=== PATIENT | female | born 1980 | race African-American/Black ===

== ENCOUNTER 2016-09-28 11:46 | Emergency (ER) | payer SELFPAY ==
[2016-09-28 12:04] VITALS: BP 118/74; PULSE 99; TEMP 99.5; BMI 32.6
[2016-09-28 13:27] LABS: URINE APPEARANCE CLEAR; URINE BILIRUBIN NEGATIVE (NEGATIVE); URINE BLOOD NEGATIVE (NEGATIVE); URINE COLOR YELLOW; URINE GLUCOSE (UA) NEGATIVE (NEGATIVE); URINE KETONE TRACE (NEGATIVE); URINE LEUK ESTERASE TRACE (NEGATIVE); URINE NITRITE NEGATIVE (NEGATIVE)
[2016-09-28 13:37] LABS: URINE PROTEIN 1+ (NEGATIVE)
[2016-09-28 13:39] LABS: URINE BACTERIA RARE /hpf (NONE SEEN); URINE HYALINE CAST 1 /lpf; URINE MUCUS FEW; URINE RBC 3 /hpf (0-3); URINE WBC 4 /hpf (3-5)
--- NOTE | 2016-09-28 14:06 | PDOC ---
History of Present Illness - General Chief Complaint: Cold Symptoms Stated Complaint: FEVER/BACK PAIN Time Seen by Provider: 09/28/16 12:35 History Source: Patient Exam Limitations: No Limitations - History of Present Illness Initial Comments: 09/28/16 14:02 Patient is a 36-year-old female, no significant medical history currently on no medications presents emergency department for evaluation of intermittent subjective fevers for 2 weeks. Patient has been taking 800 mg of Motrin. Has been feeling generalized body pain, joint pain, no sore throat, denies any dysuria, no nausea vomiting or diarrhea, no cough. Patient denies any rash. Patient took Motrin this a.m. MAXIMUM TEMPERATURE is unknown. Past Medical History: Denies. Allergies: No known allergies Family History: Non-contributory Social History: Denies smoking, alcohol use, or IVDU Vital signs on arrival are notable for pulse of 96. Review of Systems GENERAL/CONSTITUTIONAL: Fever. No weakness. No weight change. HEAD, EYES, EARS, NOSE AND THROAT: No change in vision. No ear pain or discharge. No sore throat. CARDIOVASCULAR: No chest pain or shortness of breath. RESPIRATORY: No cough, wheezing, or hemoptysis. GASTROINTESTINAL: No nausea, vomiting, diarrhea or constipation. No rectal bleeding. GENITOURINARY: No dysuria, frequency, or change in urination. MUSCULOSKELETAL: No joint or muscle swelling or pain. No neck or back pain. SKIN AND BREASTS: No rash or easy bruising. NEUROLOGIC: No headache, vertigo, loss of consciousness, or loss of sensation. PSYCHIATRIC: No depression or anxiety. ENDOCRINE: No increased thirst. No abnormal weight change. HEMATOLOGIC/LYMPHATIC: No anemia, easy bleeding, or history of blood clots. ALLERGIC/IMMUNOLOGIC: No hives or skin allergy. No latex allergy. Physical Exam: GENERAL: The patient is awake, alert, and fully oriented, in no acute distress. HEAD: Normal with no signs of trauma. EYES: Pupils equal, round and reactive to light, extraocular movements intact, sclera anicteric, conjunctiva clear. ENT: Ears normal, nares patent, oropharynx clear without exudates. Moist mucous membranes. No uvula deviation NECK: Normal range of motion, supple without lymphadenopathy, JVD, or masses. LUNGS: Breath sounds equal, clear to auscultation bilaterally. No wheezes, and no crackles. HEART: Regular rate and rhythm, normal S1 and S2 without murmur, rub or gallop. ABDOMEN: Soft, nontender, normoactive bowel sounds. No guarding, no rebound. No masses. No bruising or abrasions RECTAL : Guaiac negative, normal rectal tone. MUSCULOSKELETAL: Normal range of motion, no edema. No clubbing or cyanosis. No cords, erythema, or tenderness. No CVA Tenderness with fist. NEUROLOGICAL: Cranial nerves II through XII grossly intact. Normal speech, normal gait. PSYCH: Normal mood, normal affect. SKIN: Warm, Dry, normal turgor, no rashes or lesions noted. 09/28/16 14:08 09/28/16 14:15 Past History - Past Medical History Allergies/Adverse Reactions: Allergies Allergy/AdvReac Type Severity Reaction Status Date / Time No Known Allergies Allergy Verified 09/28/16 12:00 Home Medications: Ambulatory Orders NK [No Known Home Medication] 09/28/16 Other medical history: DENIES. - Psycho/Social/Smoking Cessation Hx Suicidal Ideation: No Smoking History: Never smoked *Physical Exam - Vital Signs Last Vital Signs Temp Pulse Resp BP Pulse Ox 99.5 F 99 H 19 118/74 96 09/28/16 12:00 09/28/16 12:00 09/28/16 12:00 09/28/16 12:00 09/28/16 12:00 ED Treatment Course - LABORATORY CBC & Chemistry Diagram: 09/28/16 14:17 - ADDITIONAL ORDERS Additional order review: Laboratory Results 09/28/16 13:11 Urine Color Yellow Urine Appearance Clear Urine pH 6.0 Urine Protein 1+ H Urine Glucose (UA) Negative Urine Ketones Trace H Urine Blood Negative Urine Nitrite Negative Urine Bilirubin Negative Urine Urobilinogen 2.0 H Ur Leukocyte Esterase Trace Urine RBC 3 Urine WBC 4 Ur Epithelial Cells Rare Urine Bacteria Rare Hyaline Casts 1 Urine Mucus Few 09/28/16 13:11 Influenza Types A,B Antigen (JONATHAN) - Final Nasopharyngeal Swab - Final Medical Decision Making - Medical Decision Making 09/28/16 14:18 A/P: Patient with fever unknown origin, has been self medicating with Motrin 800 mg. Patient states she feels weak has generalized aches and pains and joint pains. Urinalysis, urine [place] Chest x-ray Influenza Laboratory Results - last 24 hr 09/28/16 13:11 Urine Color Yellow Urine Appearance Clear Urine pH 6.0 Urine Protein 1+ H Urine Glucose (UA) Negative Urine Ketones Trace H Urine Blood Negative Urine Nitrite Negative Urine Bilirubin Negative Urine Urobilinogen 2.0 H Ur Leukocyte Esterase Trace Urine RBC 3 Urine WBC 4 Ur Epithelial Cells Rare Urine Bacteria Rare Hyaline Casts 1 Urine Mucus Few Urine analysis with trace leukoesterase, WBCs of 4, clinically with no signs of UTI 09/28/16 15:47 Laboratory Results - last 24 hr 09/28/16 09/28/16 09/28/16 13:11 14:17 14:17 WBC 2.9 L RBC 4.60 Hgb 12.7 Hct 39.0 MCV 84.7 MCH 27.6 MCHC 32.6 RDW 13.2 Plt Count 112 L MPV 9.5 Neutrophils % 42.8 Lymphocytes % 46.7 H Monocytes % 9.8 Eosinophils % 0.1 Basophils % 0.6 Urine Color Yellow Urine Appearance Clear Urine pH 6.0 Urine Protein 1+ H Urine Glucose (UA) Negative Urine Ketones Trace H Urine Blood Negative Urine Nitrite Negative Urine Bilirubin Negative Urine Urobilinogen 2.0 H Ur Leukocyte Esterase Trace Urine RBC 3 Urine WBC 4 Ur Epithelial Cells Rare Urine Bacteria Rare Hyaline Casts 1 Urine Mucus Few Urine HCG, Qual Negative In reviewing the labs, urinalysis is not significant enough to suggest a urinary tract infection and patient were no urinary symptoms. WBCs of 2.9 with lymphocytes of 46.7 patient most likely viral in nature. We'll DC patient home, supportive care, rapid influenza is negative. Patient to follow-up with primary care doctor Friday. I discussed the physical exam findings, ancillary test results and final diagnoses with the patient. I answered all of the patient's questions. The patient was satisfied with the care received and felt comfortable with the discharge plan and treatment plan. The patient will call to arrange follow-up and will return to the Emergency Department with any new, persistent or worsening symptoms. *DC/Admit/Observation/Transfer Diagnosis at time of Disposition: Viral illness - Discharge Dispostion Disposition: HOME Condition at time of disposition: Good Admit: No - Referrals Referrals: [facility] [Provider Group] - Patient Instructions Additional Instructions: Increase fluids to prevent dehydration Motrin for fever greater than 101.0 Please followup with primary care DrBrady in 3 days if symptoms persist Return to emergency department any increased cough, fever, inability to drink or other concerns - Post Discharge Activity Work/School Note: Back to Work
[2016-09-28 14:37] LABS: BASOPHIL 0.6 % (0-2.0); EOSINOPHIL 0.1 % (0-4.5); MCH 27.6 pg (25.7-33.7); MCHC 32.6 g/dl (32.0-36.0); MEAN CELL VOLUME 84.7 fl (80-96); MEAN PLT VOLUME 9.5 fl (7.5-11.1); NEUTROPHILS 42.8 % (42.8-82.8); PLATELET COUNT 112 K/MM3 (134-434); RDW 13.2 % (11.6-15.6); WHITE BLOOD COUNT 2.9 K/mm3 (4.0-10.0)
== END 2016-09-28 16:05 | disposition home or self-care (01) ==
LOC: JERFT 11:46
DX: B34.9 Viral infection, unspecified (principal)
CPT/HCPCS: 36415; 71020-TC; 81003; 81015; 84703; 85025; 86618; 87086; 87804; 99281-25

== ENCOUNTER 2016-12-07 08:06 | Emergency (ER) | payer SELFPAY ==
[2016-12-07 08:22] VITALS: BMI 33.4
[2016-12-07] MEDS ORDERED: KETOROLAC TROMETHAMINE 30 MG/1 ML VIAL IVPUSH ONE (08:26)
[2016-12-07] MEDS ORDERED: ONDANSETRON 4 MG/2 ML VIAL IVPUSH ONE ×2 (08:26→12:09)
[2016-12-07] MEDS ORDERED: SODIUM CHLORIDE 1,000 ML IV STA ×2 (08:26→12:36)
[2016-12-07] MEDS ORDERED: KETOROLAC TROMETHAMINE 30 MG/1 ML VIAL ONE (08:32)
[2016-12-07] MEDS ORDERED: ONDANSETRON 4 MG/2 ML VIAL ONE ×2 (08:32→12:15)
--- NOTE | 2016-12-07 08:33 | PDOC ---
History of Present Illness - General Chief Complaint: Pain, Acute Stated Complaint: ABDOMINAL PAIN Time Seen by Provider: 12/07/16 08:24 History Source: Patient - History of Present Illness Timing/Duration: reports: other (last night) Abdominal Pain Onset Location: reports: RLQ Pain Radiation: reports: flank Past History - Past Medical History Allergies/Adverse Reactions: Allergies Allergy/AdvReac Type Severity Reaction Status Date / Time No Known Allergies Allergy Verified 12/07/16 08:10 Home Medications: Ambulatory Orders Ibuprofen [Motrin -] 600 mg PO QID #28 tablet 12/07/16 Ondansetron HCl [Zofran] 4 mg PO Q8H #15 tablet 12/07/16 Tamsulosin HCl [Flomax] 0.4 mg PO DAILY #7 cap.er.24h 12/07/16 Tramadol HCl 50 mg PO Q6H #12 tablet MDD 200 mg 12/07/16 Other medical history: Denies - Surgical History Abdominal Surgery: Yes (Left Ingunal hernia repair) - Immunization History Immunization Up to Date: Yes - Suicide/Smoking/Psychosocial Hx Smoking History: Never smoked Have you smoked in the past 12 months: No Information on smoking cessation initiated: No Hx Alcohol Use: No Drug/Substance Use Hx: No Substance Use Type: None Review of Systems - Review of Systems Constitutional: No: Chills, Fever ABD/GI: Yes: Nausea. No: Constipated, Diarrhea, Vomiting : No: Burning, Dysuria, Hematuria *Physical Exam - Vital Signs Last Vital Signs Temp Pulse Resp BP Pulse Ox 97.9 F 88 14 124/75 100 12/07/16 08:10 12/07/16 08:10 12/07/16 08:10 12/07/16 08:10 12/07/16 08:10 - Physical Exam General Appearance: Yes: Appropriately Dressed, Severe Distress HEENT: positive: Normal Voice Neck: positive: Supple Respiratory/Chest: positive: Lungs Clear, Normal Breath Sounds. negative: Respiratory Distress Cardiovascular: positive: Regular Rate, S1, S2 Gastrointestinal/Abdominal: positive: Tender, Soft, Other (significant tenderness to RLQ, minimally to R flank, no overt CVAT). negative: Distended, Guarding, Rebound, Hernia Musculoskeletal: negative: CVA Tenderness Extremity: positive: Normal Inspection Integumentary: positive: Dry, Warm Neurologic: positive: Fully Oriented, Alert, Normal Mood/Affect ED Treatment Course - LABORATORY CBC & Chemistry Diagram: 12/07/16 09:00 12/07/16 09:00 - RADIOLOGY Radiology Studies Ordered: Category Date Time Status ABDOMEN & PELVIS CT WITH CONTR [CT] Stat CT Scan 12/07/16 08:29 Ordered Medical Decision Making - Medical Decision Making 12/07/16 08:30 36-year-old female, no significant history here with severe abd pain that started last night, and associated with nausea. States pain starts in RLQ and radiates to R flank. No vomiting, dysuria, hematuria, change in bowel movements , fever or chills. Denies any vaginal discharge, history of STD or new sexual partner. No h/o renal stone. No history of similar pain. See exam Appy vs renal stone -pain control -zofran -IVF -labs -CT 12/07/16 08:32 12/07/16 12:45 3mm stone to R UVJ w/ mild to mod hydro on CT. Also seen as possible gallstones. Labs unremarkable. Pt reports feeling sig better at this time. Will dc w/ meds and f/u 12/07/16 12:47 12/07/16 12:53 *DC/Admit/Observation/Transfer Diagnosis at time of Disposition: Renal colic on right side - Discharge Dispostion Disposition: HOME Condition at time of disposition: Improved - Prescriptions Prescriptions: Tamsulosin HCl [Flomax] 0.4 mg PO DAILY #7 cap.er.24h Ibuprofen [Motrin -] 600 mg PO QID #28 tablet Tramadol HCl 50 mg PO Q6H #12 tablet MDD 200 mg Ondansetron HCl [Zofran] 4 mg PO Q8H #15 tablet - Referrals Referrals: Chaim Carrillo MD., MD [Staff Physician] - - Patient Instructions Printed Discharge Instructions: Kidney Stones -- Adult Additional Instructions: Take medications as directed and follow up with Dr Carrillo of urology in 1-2 weeks If symptoms worsen, return to the ED immediately
[2016-12-07 09:19] LABS: BASOPHIL 0.3 % (0-2.0); EOSINOPHIL 0.5 % (0-4.5); MCH 28.6 pg (25.7-33.7); MCHC 32.7 g/dl (32.0-36.0); MEAN CELL VOLUME 87.7 fl (80-96); MEAN PLT VOLUME 9.9 fl (7.5-11.1); NEUTROPHILS 33.4 % (42.8-82.8); PLATELET COUNT 158 K/MM3 (134-434); RDW 15.3 % (11.6-15.6); WHITE BLOOD COUNT 4.9 K/mm3 (4.0-10.0)
[2016-12-07 09:38] LABS: ALBUMIN 3.2 g/dl (3.4-5.0); ALK PHOS 67 U/L (45-117); ANION GAP 9 (8-16); BILIRUBIN,TOTAL 0.5 mg/dL (0.2-1.0); CALCIUM 8.1 mg/dL (8.5-10.1); CO2 23 mmol/L (21-32); CREATININE 0.9 mg/dL (0.55-1.02); GLUCOSE,RANDOM 117 mg/dL (74-106); SGOT/AST 78 U/L (15-37); SGPT/ALT 167 U/L (12-78); TOT PROT 7.4 g/dl (6.4-8.2)
[2016-12-07] MEDS ORDERED: METOCLOPRAMIDE HCL INJECTION 10 MG/2 ML VIAL IVPB ONE ×2 (09:39→11:37)
[2016-12-07] MEDS ORDERED: METOCLOPRAMIDE HCL INJECTION 10 MG/2 ML VIAL ONE ×2 (09:41→11:39)
[2016-12-07] MEDS ORDERED: morphine CARPU-JECT 4 MG/1 ML DISP.SYRIN IVPUSH ONE (12:14)
[2016-12-07] MEDS ORDERED: morphine CARPU-JECT 4 MG/1 ML DISP.SYRIN ONE (12:15)
[2016-12-07] MEDS ORDERED: TAMSULOSIN HCL 0.4 MG CAP.ER.24H (FP) PO ONE (12:36)
[2016-12-07] MEDS ORDERED: TAMSULOSIN HCL 0.4 MG CAP.ER.24H (FP) ONE (12:54)
[2016-12-07 13:27] VITALS: BP 112/61; PULSE 62; TEMP 97.7
== END 2016-12-07 13:25 | disposition home or self-care (01) ==
LOC: JER 08:06
PROC: 3E0337Z Introduction of Electrolytic and Water Balance Substance into Peripheral Vein, Percutaneous Approach (ICD-10-PCS; principal; 2016-12-07)
PROC: 3E033NZ Introduction of Analgesics, Hypnotics, Sedatives into Peripheral Vein, Percutaneous Approach (ICD-10-PCS; 2016-12-07)
PROC: 3E033GC Introduction of Other Therapeutic Substance into Peripheral Vein, Percutaneous Approach (ICD-10-PCS; 2016-12-07)
PROC: 3E0333Z Introduction of Anti-inflammatory into Peripheral Vein, Percutaneous Approach (ICD-10-PCS; 2016-12-07)
PROC: 3E033GC Introduction of Other Therapeutic Substance into Peripheral Vein, Percutaneous Approach (ICD-10-PCS; 2016-12-07)
DX: N13.2 Hydronephrosis with renal and ureteral calculous obstruction (principal)
CPT/HCPCS: 36415; 74177-TC; 80053; 83690; 84703; 85025; 86850; 86900; 86901; 99282-25